=== PATIENT | male | born 1970 | race Caucasian/White ===

== ENCOUNTER 2017-02-22 16:56 | Emergency (ER) | payer SELFPAY ==
[~2017-02-22] VITALS: Ht 172.7 cm; Wt 90.0 kg
[~2017-02-22 16:56] MED LIST: GLIP5TAB12 PO; METF500T4 PO
[2017-02-22 18:59] LABS: BASOPHILS % 0.6 % (0.0-2.0); HEMATOCRIT. 45.3 % (42.0-52.0); HEMOGLOBIN. 15.7 g/dL (14.0-18.0); LYMPHOCYTES % 17.6 % (20.0-50.0); MEAN CORPUSCULAR HEMOGLOBIN 32.6 pg (28.0-32.0); MEAN CORPUSCULAR VOLUME 94.4 fL (80.0-94.0); MEAN PLATELET VOLUME 7.9 fl (7.4-10.4); MONOCYTES % 9.6 % (2.0-8.0); NEUTROPHILS % 71.2 % (40.0-76.0); PLATELET 198 x1000/uL (130-400); RED CELL DISTRIBUTION WIDTH 12.8 % (11.6-14.6)
[2017-02-22 19:02] LABS: CHLORIDE 98 mEq/L (98-107)
[2017-02-22 19:10] LABS: CARBON DIOXIDE 23 mEq/L (21-32)
[2017-02-22] MEDS ORDERED: SODIUM CHLORIDE 0.9% 1,000 ML IV ONE (19:15)
[2017-02-22 19:56] VITALS: BP 136/90
== END 2017-02-22 20:51 | disposition home or self-care (01) ==
LOC: ER 19:55
DX: E11.65 Type 2 diabetes mellitus with hyperglycemia (principal); I10 Essential (primary) hypertension
CPT/HCPCS: 36415; 80053; 82962; 85025; 99284; J7030; Z7610